=== PATIENT | male | born 1985 | race Caucasian/White ===

== ENCOUNTER 2021-02-23 14:33 | Inpatient (IN) | payer OTHER ==
[2021-02-23 16:07] VITALS: BMI 23.5
[2021-02-23] MEDS ORDERED: NICOTINE POLACRILEX 2 MG GUM BC PRN (18:29)
[2021-02-23] MEDS ORDERED: MAG HYDROX/AL HYDROX/SIMETH 30 ML UNIT-DOSE CUP PO PRN (18:29)
[2021-02-23] MEDS ORDERED: ACETAMINOPHEN 325 MG TABLET (FP) PO PRN (18:29)
[2021-02-23] MEDS ORDERED: guaiFENesin 200 MG/10 ML 10 ML UNIT-DOSE CUPS PO PRN (18:29)
[2021-02-23] MEDS ORDERED: LOPERAMIDE HCL 2 MG CAPSULE PO PRN (18:29)
[2021-02-23] MEDS ORDERED: MAGNESIUM HYDROX 2400MG/30ML ORAL SUSPENSION 30 ML CUP PO PRN (18:29)
[2021-02-23] MEDS ORDERED: MAGNESIUM CITRATE 300 ML BOTTLE PO PRN (18:29)
[2021-02-23] MEDS ORDERED: P-EPHED 60MG/TRIPROLIDI 2.5MG TABLET PO PRN (18:29)
[2021-02-23] MEDS: CLOTRIMAZOLE 1% CREAM 15 GM TUBE TP SCH (21:58)
[2021-02-23] MEDS: THIAMINE HCL 100 MG TABLET (FP) PO SCH (21:58)
[2021-02-23] MEDS: MELATONIN 5 MG TABLETS PO SCH (21:58)
[2021-02-23] MEDS: hydrOXYzine PAMOATE 25 MG CAPSULE (FP) PO PRN (21:59)
[2021-02-24] MEDS: CLOTRIMAZOLE 1% CREAM 15 GM TUBE TP SCH ×2 (10:07→21:31)
[2021-02-24] MEDS: NICOTINE 14 MG/24 HOURS TOPICAL PATCH TD SCH (10:07)
[2021-02-24] MEDS: NICOTINE 7 MG/24 HOURS TOPICAL PATCH TD SCH (10:07)
[2021-02-24] MEDS: PRENATAL VITAMINS W/ FOLIC ACID TABLET (FP) PO SCH (10:07)
[2021-02-24] MEDS: hydrOXYzine PAMOATE 25 MG CAPSULE (FP) PO PRN ×3 (10:08→21:30)
[2021-02-24 11:04] LABS: ALBUMIN 4.3 g/dl (3.4-5.0); BLOOD UREA NITROGEN 6.9 mg/dL (7-18); CALCIUM 9.2 mg/dL (8.5-10.1)
[2021-02-24 11:05] LABS: HEMATOCRIT 40.1 % (35.4-49); HEMOGLOBIN 13.3 GM/dL (11.7-16.9); MCH 32.5 pg (25.7-33.7); MCHC 33.3 g/dl (32.0-35.9); MEAN CELL VOLUME 97.5 fl (80-96); MEAN PLT VOLUME 8.6 fl (7.5-11.1); PLATELET COUNT 345 10^3/uL (134-434); RBC 4.11 M/mm3 (4.00-5.60); WHITE BLOOD COUNT 4.7 K/mm3 (4.0-10.0)
[2021-02-24 11:08] LABS: BILIRUBIN,TOTAL 0.4 mg/dL (0.2-1); CREATININE 0.6 mg/dL (0.55-1.3); TOT PROT 7.4 g/dl (6.4-8.2)
[2021-02-24 13:29] LABS: HIV INTERPRETATION NEGATIVE (NEGATIVE)
[2021-02-24 14:17] LABS: PH,URINE 7.5 (5.0-8.0); URINE APPEARANCE CLEAR; URINE BILIRUBIN NEGATIVE (NEGATIVE); URINE COLOR YELLOW; URINE GLUCOSE (UA) NEGATIVE (NEGATIVE); URINE KETONE NEGATIVE (NEGATIVE); URINE LEUK ESTERASE NEGATIVE (NEGATIVE); URINE NITRITE NEGATIVE (NEGATIVE); URINE PROTEIN NEGATIVE (NEGATIVE); URINE UROBILINOGEN 0.2 mg/dL (0.2-1.0)
[2021-02-24] MEDS ORDERED: PT OWN MED DRAWER 7, Y5N ONE (19:42)
[2021-02-24] MEDS: THIAMINE HCL 100 MG TABLET (FP) PO SCH (21:30)
[2021-02-24] MEDS: MELATONIN 5 MG TABLETS PO SCH (21:30)
[2021-02-25] MEDS: NICOTINE 14 MG/24 HOURS TOPICAL PATCH TD SCH (10:07)
[2021-02-25] MEDS: PRENATAL VITAMINS W/ FOLIC ACID TABLET (FP) PO SCH (10:07)
[2021-02-25] MEDS: CLOTRIMAZOLE 1% CREAM 15 GM TUBE TP SCH ×2 (10:08→21:36)
[2021-02-25] MEDS: hydrOXYzine PAMOATE 25 MG CAPSULE (FP) PO PRN ×2 (10:08→21:35)
[2021-02-25] MEDS: NICOTINE 7 MG/24 HOURS TOPICAL PATCH TD SCH (10:08)
[2021-02-25] MEDS: GABAPENTIN 100 MG CAPSULE PO SCH ×2 (13:13→21:36)
[2021-02-25] MEDS: THIAMINE HCL 100 MG TABLET (FP) PO SCH (21:35)
[2021-02-25] MEDS: MELATONIN 5 MG TABLETS PO SCH (21:36)
[2021-02-25] MEDS: traZODone HCL 100 MG TABLET (FP) PO SCH (22:48)
[2021-02-26] MEDS: GABAPENTIN 100 MG CAPSULE PO SCH ×3 (06:57→21:47)
[2021-02-26] MEDS: NICOTINE 7 MG/24 HOURS TOPICAL PATCH TD SCH (10:04)
[2021-02-26] MEDS: PRENATAL VITAMINS W/ FOLIC ACID TABLET (FP) PO SCH (10:04)
[2021-02-26] MEDS: NICOTINE 14 MG/24 HOURS TOPICAL PATCH TD SCH (10:05)
[2021-02-26] MEDS: CLOTRIMAZOLE 1% CREAM 15 GM TUBE TP SCH ×2 (10:05→21:47)
[2021-02-26] MEDS: hydrOXYzine PAMOATE 25 MG CAPSULE (FP) PO PRN ×2 (10:06→21:47)
[2021-02-26] MEDS ORDERED: COVID-19 VAC,AD26(JANSSEN)/PF 0.5 ML IM ONE (13:00)
[2021-02-26] MEDS ORDERED: BENZOYL PEROXIDE 5% 60 GM GEL..GRAM. TP ONE (15:13)
[2021-02-26] MEDS: MELATONIN 5 MG TABLETS PO SCH (21:47)
[2021-02-26] MEDS: traZODone HCL 100 MG TABLET (FP) PO SCH (21:47)
[2021-02-26] MEDS: THIAMINE HCL 100 MG TABLET (FP) PO SCH (21:47)
[2021-02-27] MEDS: GABAPENTIN 100 MG CAPSULE PO SCH ×3 (06:13→21:42)
[2021-02-27] MEDS: hydrOXYzine PAMOATE 25 MG CAPSULE (FP) PO PRN ×4 (07:27→22:53)
[2021-02-27] MEDS: PRENATAL VITAMINS W/ FOLIC ACID TABLET (FP) PO SCH (09:57)
[2021-02-27] MEDS: NICOTINE 14 MG/24 HOURS TOPICAL PATCH TD SCH (09:58)
[2021-02-27] MEDS: BENZOYL PEROXIDE 5% 60 GM GEL..GRAM. TP SCH (09:59)
[2021-02-27] MEDS: NICOTINE 7 MG/24 HOURS TOPICAL PATCH TD SCH (09:59)
[2021-02-27] MEDS: CLOTRIMAZOLE 1% CREAM 15 GM TUBE TP SCH ×2 (09:59→21:42)
[2021-02-27 10:29] LABS: INR 1.05 (0.83-1.09); PROTHROMBIN TIME (PATIENT) 12.9 SEC (9.7-13.0)
[2021-02-27 10:32] LABS: SGOT/AST 40 U/L (15-37); SGPT/ALT 78 U/L (13-61)
[2021-02-27] MEDS: IBUPROFEN 400 MG TABLET (FP) PO PRN (18:17)
[2021-02-27] MEDS ORDERED: PT OWN MED DRAWER 7, Y5N ONE (18:53)
[2021-02-27] MEDS: MELATONIN 5 MG TABLETS PO SCH (21:42)
[2021-02-27] MEDS: traZODone HCL 100 MG TABLET (FP) PO SCH (21:42)
[2021-02-27] MEDS: THIAMINE HCL 100 MG TABLET (FP) PO SCH (21:42)
[2021-02-28] MEDS: GABAPENTIN 100 MG CAPSULE PO SCH ×3 (06:13→21:38)
[2021-02-28] MEDS: NICOTINE 7 MG/24 HOURS TOPICAL PATCH TD SCH (10:03)
[2021-02-28] MEDS: PRENATAL VITAMINS W/ FOLIC ACID TABLET (FP) PO SCH (10:03)
[2021-02-28] MEDS: NICOTINE 14 MG/24 HOURS TOPICAL PATCH TD SCH (10:03)
[2021-02-28] MEDS: hydrOXYzine PAMOATE 25 MG CAPSULE (FP) PO PRN ×3 (10:04→21:39)
[2021-02-28] MEDS: IBUPROFEN 400 MG TABLET (FP) PO PRN (10:05)
[2021-02-28] MEDS: BENZOYL PEROXIDE 5% 60 GM GEL..GRAM. TP SCH (10:06)
[2021-02-28] MEDS: CLOTRIMAZOLE 1% CREAM 15 GM TUBE TP SCH ×2 (10:06→21:40)
[2021-02-28] MEDS ORDERED: hydrOXYzine PAMOATE 25 MG CAPSULE (FP) PO ONE (15:57)
[2021-02-28] MEDS ORDERED: GABAPENTIN 100 MG CAPSULE PO ONE (15:58)
[2021-02-28] MEDS: THIAMINE HCL 100 MG TABLET (FP) PO SCH (21:38)
[2021-02-28] MEDS: traZODone HCL 100 MG TABLET (FP) PO SCH (21:39)
[2021-03-01] MEDS: GABAPENTIN 100 MG CAPSULE PO SCH ×3 (06:19→21:35)
[2021-03-01] MEDS ORDERED: PT OWN MED DRAWER 7, Y5N ONE (09:06)
[2021-03-01] MEDS: NICOTINE 14 MG/24 HOURS TOPICAL PATCH TD SCH (10:00)
[2021-03-01] MEDS: hydrOXYzine PAMOATE 25 MG CAPSULE (FP) PO PRN ×3 (10:00→19:57)
[2021-03-01] MEDS: PRENATAL VITAMINS W/ FOLIC ACID TABLET (FP) PO SCH (10:00)
[2021-03-01] MEDS: CLOTRIMAZOLE 1% CREAM 15 GM TUBE TP SCH ×2 (10:02→21:35)
[2021-03-01] MEDS: NICOTINE 7 MG/24 HOURS TOPICAL PATCH TD SCH (10:02)
[2021-03-01] MEDS: BENZOYL PEROXIDE 5% 60 GM GEL..GRAM. TP SCH (10:02)
[2021-03-01] MEDS: traZODone HCL 100 MG TABLET (FP) PO SCH (21:35)
[2021-03-01] MEDS: THIAMINE HCL 100 MG TABLET (FP) PO SCH (21:35)
[2021-03-02] MEDS: GABAPENTIN 100 MG CAPSULE PO SCH ×3 (06:07→21:41)
[2021-03-02] MEDS: NICOTINE 7 MG/24 HOURS TOPICAL PATCH TD SCH (09:49)
[2021-03-02] MEDS: PRENATAL VITAMINS W/ FOLIC ACID TABLET (FP) PO SCH (09:49)
[2021-03-02] MEDS: hydrOXYzine PAMOATE 25 MG CAPSULE (FP) PO PRN ×3 (09:49→21:42)
[2021-03-02] MEDS: IBUPROFEN 400 MG TABLET (FP) PO PRN ×2 (09:49→17:47)
[2021-03-02] MEDS: NICOTINE 14 MG/24 HOURS TOPICAL PATCH TD SCH (09:49)
[2021-03-02] MEDS: CLOTRIMAZOLE 1% CREAM 15 GM TUBE TP SCH ×2 (09:51→21:42)
[2021-03-02] MEDS: BENZOYL PEROXIDE 5% 60 GM GEL..GRAM. TP SCH (09:51)
[2021-03-02] MEDS ORDERED: PT OWN MED DRAWER 7, Y5N ONE (19:25)
[2021-03-02] MEDS: traZODone HCL 50 MG TABLET (FP) PO SCH (21:42)
[2021-03-02] MEDS: THIAMINE HCL 100 MG TABLET (FP) PO SCH (21:42)
[2021-03-03] MEDS: GABAPENTIN 100 MG CAPSULE PO SCH ×3 (06:14→21:52)
[2021-03-03] MEDS: NICOTINE 14 MG/24 HOURS TOPICAL PATCH TD SCH (10:08)
[2021-03-03] MEDS: PRENATAL VITAMINS W/ FOLIC ACID TABLET (FP) PO SCH (10:08)
[2021-03-03] MEDS: NICOTINE 7 MG/24 HOURS TOPICAL PATCH TD SCH (10:09)
[2021-03-03] MEDS: BENZOYL PEROXIDE 5% 60 GM GEL..GRAM. TP SCH (10:09)
[2021-03-03] MEDS: CLOTRIMAZOLE 1% CREAM 15 GM TUBE TP SCH ×2 (10:10→21:53)
[2021-03-03] MEDS: hydrOXYzine PAMOATE 25 MG CAPSULE (FP) PO PRN ×3 (10:11→19:01)
[2021-03-03] MEDS: IBUPROFEN 400 MG TABLET (FP) PO PRN (15:01)
[2021-03-03] MEDS: THIAMINE HCL 100 MG TABLET (FP) PO SCH (21:52)
[2021-03-03] MEDS: traZODone HCL 50 MG TABLET (FP) PO SCH (21:52)
[2021-03-04] MEDS: hydrOXYzine PAMOATE 25 MG CAPSULE (FP) PO PRN ×5 (06:05→22:48)
[2021-03-04] MEDS: GABAPENTIN 100 MG CAPSULE PO SCH ×3 (06:05→21:24)
[2021-03-04] MEDS: NICOTINE 7 MG/24 HOURS TOPICAL PATCH TD SCH (10:15)
[2021-03-04] MEDS: PRENATAL VITAMINS W/ FOLIC ACID TABLET (FP) PO SCH (10:15)
[2021-03-04] MEDS: CLOTRIMAZOLE 1% CREAM 15 GM TUBE TP SCH ×2 (10:16→21:24)
[2021-03-04] MEDS: BENZOYL PEROXIDE 5% 60 GM GEL..GRAM. TP SCH (10:16)
[2021-03-04] MEDS: NICOTINE 14 MG/24 HOURS TOPICAL PATCH TD SCH (10:16)
[2021-03-04] MEDS: IBUPROFEN 400 MG TABLET (FP) PO PRN (15:13)
[2021-03-04] MEDS: THIAMINE HCL 100 MG TABLET (FP) PO SCH (21:24)
[2021-03-04] MEDS: traZODone HCL 50 MG TABLET (FP) PO SCH (22:48)
[2021-03-05] MEDS: GABAPENTIN 100 MG CAPSULE PO SCH ×3 (06:09→21:41)
[2021-03-05] MEDS: hydrOXYzine PAMOATE 25 MG CAPSULE (FP) PO PRN ×5 (06:09→22:34)
[2021-03-05] MEDS: NICOTINE 7 MG/24 HOURS TOPICAL PATCH TD SCH (10:08)
[2021-03-05] MEDS: PRENATAL VITAMINS W/ FOLIC ACID TABLET (FP) PO SCH (10:08)
[2021-03-05] MEDS: CLOTRIMAZOLE 1% CREAM 15 GM TUBE TP SCH ×2 (10:08→21:40)
[2021-03-05] MEDS: NICOTINE 14 MG/24 HOURS TOPICAL PATCH TD SCH (10:08)
[2021-03-05] MEDS: BENZOYL PEROXIDE 5% 60 GM GEL..GRAM. TP SCH ×2 (10:08→22:32)
[2021-03-05] MEDS: IBUPROFEN 400 MG TABLET (FP) PO PRN (14:29)
[2021-03-05] MEDS ORDERED: PT OWN MED DRAWER 7, Y5N ONE ×2 (19:22→22:33)
[2021-03-05] MEDS: THIAMINE HCL 100 MG TABLET (FP) PO SCH (21:41)
[2021-03-05] MEDS: traZODone HCL 50 MG TABLET (FP) PO SCH (21:41)
[2021-03-06] MEDS: hydrOXYzine PAMOATE 25 MG CAPSULE (FP) PO PRN ×4 (06:14→22:09)
[2021-03-06] MEDS: GABAPENTIN 100 MG CAPSULE PO SCH ×3 (06:14→22:10)
[2021-03-06] MEDS: NICOTINE 14 MG/24 HOURS TOPICAL PATCH TD SCH (09:58)
[2021-03-06] MEDS: CLOTRIMAZOLE 1% CREAM 15 GM TUBE TP SCH ×2 (09:58→22:10)
[2021-03-06] MEDS: PRENATAL VITAMINS W/ FOLIC ACID TABLET (FP) PO SCH (09:58)
[2021-03-06] MEDS: BENZOYL PEROXIDE 5% 60 GM GEL..GRAM. TP SCH (09:58)
[2021-03-06] MEDS: IBUPROFEN 400 MG TABLET (FP) PO PRN (11:06)
[2021-03-06] MEDS: NICOTINE 7 MG/24 HOURS TOPICAL PATCH TD SCH (11:08)
[2021-03-06] MEDS ORDERED: PT OWN MED DRAWER 7, Y5N ONE (21:09)
[2021-03-06] MEDS: traZODone HCL 50 MG TABLET (FP) PO SCH (22:10)
[2021-03-06] MEDS: THIAMINE HCL 100 MG TABLET (FP) PO SCH (22:10)
[2021-03-07] MEDS: hydrOXYzine PAMOATE 25 MG CAPSULE (FP) PO PRN ×4 (06:23→21:44)
[2021-03-07] MEDS: GABAPENTIN 100 MG CAPSULE PO SCH ×3 (06:23→21:44)
[2021-03-07] MEDS: BENZOYL PEROXIDE 5% 60 GM GEL..GRAM. TP SCH (10:32)
[2021-03-07] MEDS: CLOTRIMAZOLE 1% CREAM 15 GM TUBE TP SCH ×2 (10:32→21:44)
[2021-03-07] MEDS: NICOTINE 14 MG/24 HOURS TOPICAL PATCH TD SCH (10:32)
[2021-03-07] MEDS: PRENATAL VITAMINS W/ FOLIC ACID TABLET (FP) PO SCH (10:32)
[2021-03-07] MEDS: NICOTINE 7 MG/24 HOURS TOPICAL PATCH TD SCH (11:40)
[2021-03-07] MEDS: IBUPROFEN 400 MG TABLET (FP) PO PRN (13:06)
[2021-03-07] MEDS ORDERED: PT OWN MED DRAWER 7, Y5N ONE (18:50)
[2021-03-07] MEDS: traZODone HCL 50 MG TABLET (FP) PO SCH (21:44)
[2021-03-07] MEDS: THIAMINE HCL 100 MG TABLET (FP) PO SCH (21:44)
[2021-03-08] MEDS: hydrOXYzine PAMOATE 25 MG CAPSULE (FP) PO PRN ×4 (06:16→21:38)
[2021-03-08] MEDS: GABAPENTIN 100 MG CAPSULE PO SCH ×3 (06:16→21:39)
[2021-03-08 07:02] VITALS: TEMP 97.3
[2021-03-08] MEDS: NICOTINE 14 MG/24 HOURS TOPICAL PATCH TD SCH (10:14)
[2021-03-08] MEDS: PRENATAL VITAMINS W/ FOLIC ACID TABLET (FP) PO SCH (10:14)
[2021-03-08] MEDS: CLOTRIMAZOLE 1% CREAM 15 GM TUBE TP SCH ×3 (10:15→21:38)
[2021-03-08] MEDS: BENZOYL PEROXIDE 5% 60 GM GEL..GRAM. TP SCH (10:15)
[2021-03-08] MEDS: IBUPROFEN 400 MG TABLET (FP) PO PRN (10:49)
[2021-03-08] MEDS ORDERED: PT OWN MED DRAWER 7, Y5N ONE (11:29)
[2021-03-08] MEDS: traZODone HCL 50 MG TABLET (FP) PO SCH (21:38)
[2021-03-08] MEDS: THIAMINE HCL 100 MG TABLET (FP) PO SCH (21:39)
[2021-03-09] MEDS: hydrOXYzine PAMOATE 25 MG CAPSULE (FP) PO PRN ×2 (06:20→10:07)
[2021-03-09] MEDS: GABAPENTIN 100 MG CAPSULE PO SCH (06:21)
[2021-03-09 08:02] VITALS: BP 125/74; PULSE 88
[2021-03-09] MEDS: PRENATAL VITAMINS W/ FOLIC ACID TABLET (FP) PO SCH (10:07)
[2021-03-09] MEDS: NICOTINE 14 MG/24 HOURS TOPICAL PATCH TD SCH (10:09)
[2021-03-09] MEDS: BENZOYL PEROXIDE 5% 60 GM GEL..GRAM. TP SCH (10:10)
[2021-03-09] MEDS: CLOTRIMAZOLE 1% CREAM 15 GM TUBE TP SCH (10:10)
== END 2021-03-09 10:25 | disposition home or self-care (01) | DRG 772 ==
LOC: YASAS 14:33 → Y5N 18:41
PROVIDERS: ADMIT Allergy & Immunology; ATTEND Allergy & Immunology
PROC: HZ42ZZZ Group Counseling for Substance Abuse Treatment, Cognitive-Behavioral (ICD-10-PCS; principal; 2021-02-23)
DX: F10.20 Alcohol dependence, uncomplicated (principal); F17.210 Nicotine dependence, cigarettes, uncomplicated; F10.282 Alcohol dependence with alcohol-induced sleep disorder; F32.9 Major depressive disorder, single episode, unspecified; F42.9 Obsessive-compulsive disorder, unspecified; F90.9 Attention-deficit hyperactivity disorder, unspecified type; K21.9 Gastro-esophageal reflux disease without esophagitis; L40.50 Arthropathic psoriasis, unspecified; L40.8 Other psoriasis; B35.6 Tinea cruris; Z91.410 Personal history of adult physical and sexual abuse; Z88.1 Allergy status to other antibiotic agents; Z91.018 Allergy to other foods
CPT/HCPCS: 0031A; 36415; 80053; 81003; 82962; 84450; 84460; 85027; 85610; 86780; 87389; 91303; 93005; 93010

== ENCOUNTER 2024-02-26 15:13 | Inpatient (IN) | payer OTHER ==
[2024-02-26 17:04] VITALS: BMI 20.5
[2024-02-26] MEDS ORDERED: guaiFENesin 600 MG TABLET.ER (FP) PO PRN (20:49)
[2024-02-26] MEDS ORDERED: BENZONATATE 200 MG CAPSULE PO PRN (20:49)
[2024-02-26] MEDS ORDERED: MAG HYDROX/AL HYDROX/SIMETH 30 ML UNIT-DOSE CUP PO PRN (20:49)
[2024-02-26] MEDS ORDERED: POLYETHYLENE GLYCOL (HEALTHYLAX) 3350 17 GM PACKET PO PRN (20:49)
[2024-02-26] MEDS ORDERED: BENZOCAINE/MENTHOL (CHLORASEPTIC ) LOZENGE MM PRN (20:49)
[2024-02-26] MEDS ORDERED: LOPERAMIDE HCL 2 MG CAPSULE PO PRN (20:49)
[2024-02-26] MEDS ORDERED: MAGNESIUM HYDROX 2400MG/30ML ORAL SUSPENSION 30 ML CUP PO PRN (20:49)
[2024-02-26] MEDS ORDERED: IBUPROFEN 400 MG TABLET (FP) PO PRN (20:49)
[2024-02-26] MEDS ORDERED: DICYCLOMINE HCL 10 MG CAPSULE PO PRN (20:49)
[2024-02-26] MEDS ORDERED: NALOXONE (NARCAN) HCL 4 MG/0.1 ML SPRAY NS PRN (20:49)
[2024-02-26] MEDS ORDERED: NALOXONE HCL 0.4 MG/ML VIAL IM PRN (20:49)
[2024-02-26] MEDS ORDERED: BISMUTH SUBSALICYLATE 524 MG/30 ML PO PRN (20:49)
[2024-02-26] MEDS ORDERED: P-EPHED 60MG/TRIPROLIDI 2.5MG TABLET PO PRN (20:49)
[2024-02-26] MEDS: chlordiazePOXIDE HCL 25 MG CAPSULE PO SCH (22:35)
[2024-02-26] MEDS: levETIRAcetam 500 MG TABLET (FP) PO SCH (22:36)
[2024-02-26] MEDS ORDERED: levETIRAcetam 500 MG TABLET (FP) PO ONE (22:37)
[2024-02-26] MEDS ORDERED: chlordiazePOXIDE HCL 25 MG CAPSULE ONE (22:37)
[2024-02-26] MEDS: MELATONIN 5 MG TABLETS PO SCH (23:30)
[2024-02-26] MEDS: IBUPROFEN 600 MG TABLET (FP) PO PRN (23:30)
[2024-02-26] MEDS: THIAMINE 100 MG TABLET PO SCH (23:32)
[2024-02-27] MEDS: METHOCARBAMOL 500 MG TABLET PO PRN (06:08)
[2024-02-27] MEDS: PRENATAL VITAMINS W/ FOLIC ACID TABLET (FP) PO SCH (10:43)
[2024-02-27 12:52] LABS: CHLORIDE 95 mmol/L (98-107); POTASSIUM 3.5 mmol/L (3.5-5.1); SODIUM 136 mmol/L (136-145)
[2024-02-27 12:55] LABS: ALBUMIN 3.8 g/dl (3.4-5.0); BLOOD UREA NITROGEN 11.5 mg/dL (7-18); GLUCOSE,RANDOM 111 mg/dL (74-106)
[2024-02-27 12:56] LABS: HEMATOCRIT 35.1 % (35.4-49); HEMOGLOBIN 12.1 GM/dL (11.7-16.9); MCH 32.3 pg (25.7-33.7); MCHC 34.4 g/dl (32.0-35.9); MEAN CELL VOLUME 93.9 fl (80-96); MEAN PLT VOLUME 8.5 fl (7.5-11.1); PLATELET COUNT 184 10^3/uL (134-434); RBC 3.74 M/mm3 (4.00-5.60); RDW 15.8 % (11.9-15.9)
[2024-02-27 12:58] LABS: CREATININE 0.5 mg/dL (0.55-1.3); SGOT/AST 111 U/L (15-37); SGPT/ALT 104 U/L (13-61)
[2024-02-27 13:00] LABS: ANION GAP 4 mmol/L (4-13); CO2 36 mmol/L (21-32); TOT PROT 6.5 g/dl (6.4-8.2)
[2024-02-27 13:01] LABS: ALK PHOS 50 U/L (45-117)
[2024-02-27 13:10] LABS: BILIRUBIN,TOTAL 0.6 mg/dL (0.2-1)
[2024-02-27] MEDS: ACETAMINOPHEN 325 MG TABLET (FP) PO PRN (15:11)
[2024-02-27] MEDS: hydrOXYzine PAMOATE 25 MG CAPSULE (FP) PO PRN (15:12)
[2024-02-27] MEDS: ONDANSETRON *ODT* 4 MG TABLET SL PRN (17:41)
[2024-02-27] MEDS: SUVOREXANT 10 MG TABLET PO PRN (22:21)
[2024-02-28] MEDS: chlordiazePOXIDE HCL 25 MG CAPSULE PO SCH (06:12)
[2024-02-28] MEDS: chlordiazePOXIDE HCL 25 MG CAPSULE PO PRN (14:59)
[2024-02-29] MEDS ORDERED: chlordiazePOXIDE HCL 10 MG CAPSULE PO PRN
[2024-02-29] MEDS: chlordiazePOXIDE HCL 10 MG CAPSULE PO SCH (05:55)
[2024-02-29] MEDS: GABAPENTIN 100 MG CAPSULE PO SCH (13:03)
[2024-02-29] MEDS: diazePAM 5 MG TABLET PO SCH (13:03)
[2024-02-29] MEDS ORDERED: GABAPENTIN 100 MG CAPSULE PO SCH (14:00)
[2024-03-01] MEDS ORDERED: chlordiazePOXIDE HCL 10 MG CAPSULE PO SCH (05:00)
[2024-03-01] MEDS: diazePAM 5 MG TABLET PO SCH (05:56)
[2024-03-01] MEDS: diazePAM 5 MG TABLET PO PRN (22:11)
[2024-03-02] MEDS ORDERED: chlordiazePOXIDE HCL 10 MG CAPSULE PO ONE (05:00)
[2024-03-02] MEDS: diazePAM 5 MG TABLET PO ONE (05:56)
[2024-03-02 09:06] VITALS: BP 141/90; PULSE 107; RESP 18; TEMP 97.3
== END 2024-03-02 10:10 | disposition home or self-care (01) | DRG 775 ==
LOC: YASAS 15:13 → Y6N 22:22
PROVIDERS: ADMIT Allergy & Immunology; ATTEND Surgery
PROC: HZ2ZZZZ Detoxification Services for Substance Abuse Treatment (ICD-10-PCS; principal; 2024-02-26)
DX: F10.230 Alcohol dependence with withdrawal, uncomplicated (principal); F10.280 Alcohol dependence with alcohol-induced anxiety disorder; F10.282 Alcohol dependence with alcohol-induced sleep disorder; F17.210 Nicotine dependence, cigarettes, uncomplicated; F41.9 Anxiety disorder, unspecified; K21.9 Gastro-esophageal reflux disease without esophagitis; M79.2 Neuralgia and neuritis, unspecified; M06.9 Rheumatoid arthritis, unspecified; B35.6 Tinea cruris; Z86.19 Personal history of other infectious and parasitic diseases; Z86.2 Personal history of diseases of the blood and blood-forming organs and certain disorders involving the immune mechanism
CPT/HCPCS: 36415; 80053; 80305; 80307; 83036; 84450; 84460; 85027; 86780; 87811; 93005; 93010; Q0162